=== PATIENT | female | born 1945 | race Caucasian/White ===

== ENCOUNTER 2022-05-23 02:50 | Emergency (ER) | payer MEDICARE ==
[~2022-05-23] VITALS: Ht 157.5 cm; Wt 52.2 kg
[2022-05-23 02:52] VITALS: BP 159/75
[2022-05-23 03:28] LABS: APPEARANCE,URINE TURBID (CLEAR); BILIRUBIN,URINE NEGATIVE (NEGATIVE); COLOR,URINE LIGHT-YELLOW (YELLOW); GLUCOSE, URINE (UA) NEGATIVE (NEGATIVE); KETONES,URINE NEGATIVE (NEGATIVE); LEUKOCYTE ESTERASE ,URINE NEGATIVE Leu/uL (NEGATIVE); NITRATE,URINE NEGATIVE (NEGATIVE); PROTEIN,URINE 10 mg/dL (NEGATIVE); UROBILINOGEN,URINE 0.2 mg/dL (0.2-1.0)
[2022-05-23 03:35] LABS: BACTERIA,URINE RARE /HPF (None Seen); MUCUS,URINE RARE LPF (None Seen); SQUAMOUS EPITHELIAL CELL,UR RARE /HPF (0-2)
[2022-05-23 03:48] LABS: BASOPHILS % (AUTO) 0.2 % (0.0-5.0); EOSINOPHILS % (AUTO) 0.3 % (0.0-8.0); HEMATOCRIT 36.2 % (36-48); MEAN CORPUSCULAR HEMOGLOBIN 31.8 pg (27.0-33.0); MEAN CORPUSCULAR HGB CONC 34.5 g/dL (32.0-36.0); MEAN CORPUSCULAR VOLUME 92.1 fL (79-99); PLATELET COUNT (AUTO) 217 K/uL (130-400); RED BLOOD CELL COUNT(AUTO) 3.93 MIL/uL (4.00-5.50); RED CELL DISTRIBUTION WIDTH 12.5 % (11.0-15.5); WHITE BLOOD COUNT (AUTO) 12.1 K/uL (4.8-10.8)
[2022-05-23 03:55] LABS: CREATININE 0.9 mg/dL (0.5-1.5); POTASSIUM 3.3 mmol/L (3.5-5.1)
[2022-05-23 04:00] LABS: TOTAL PROTEIN, SERUM 6.9 g/dL (6.0-8.3)
[2022-05-23] MEDS ORDERED: 0.9% NACL 500ML IV.SOLN 500 ML IV ONE (04:00)
[2022-05-23] MEDS ORDERED: KETOROLAC 15MG/ML VIAL (15MG/ML) IV ONE (04:00)
[2022-05-23] MEDS ORDERED: ONDANSETRON 4MG INJ IVP ONE (04:00)
[2022-05-23] MEDS ORDERED: DICL50TA9 PO (05:09)
[2022-05-23] MEDS ORDERED: ONDA4TAB10 PO (05:09)
[2022-05-23] MEDS ORDERED: TAMS-1 PO (17:32)
[2022-05-23] MEDS ORDERED: CEPH500B PO (17:32)
== END 2022-05-23 05:18 | disposition home or self-care (01) ==
LOC: EDH 02:50
DX: N20.1 Calculus of ureter (principal); R11.0 Nausea; E78.00 Pure hypercholesterolemia, unspecified; Z79.1 Long term (current) use of non-steroidal anti-inflammatories (NSAID); Z88.1 Allergy status to other antibiotic agents; Z88.2 Allergy status to sulfonamides; Z79.899 Other long term (current) drug therapy
CPT/HCPCS: 99285; 74176; 96374; 96375; 80053; 85025; 81001; 36415; J7040; J2405; J1885; 96361

== ENCOUNTER 2022-05-23 14:26 | Emergency (ER) | payer MEDICARE ==
[~2022-05-23] VITALS: Ht 157.5 cm; Wt 52.2 kg
[~2022-05-23 14:26] MED LIST: DICL50TA9 PO; ONDA4TAB10 PO
[2022-05-23] MEDS ORDERED: LACTATED RINGERS 1000ML 1,000 ML IV ONE (15:00)
[2022-05-23 15:19] LABS: BASOPHILS % (AUTO) 0.3 % (0.0-5.0); EOSINOPHILS % (AUTO) 0.1 % (0.0-8.0); HEMATOCRIT 35.2 % (36-48); LYMPHOCYTES % (AUTO) 5.3 % (21.0-51.0); MEAN CORPUSCULAR HGB CONC 34.9 g/dL (32.0-36.0); MEAN CORPUSCULAR VOLUME 91.7 fL (79-99); MONOCYTES % (AUTO) 4.6 % (3.0-13.0); NEUTROPHILS % (AUTO) 89.2 % (40.0-77.0); PLATELET COUNT (AUTO) 225 K/uL (130-400); RED BLOOD CELL COUNT(AUTO) 3.84 MIL/uL (4.00-5.50); RED CELL DISTRIBUTION WIDTH 12.6 % (11.0-15.5); WHITE BLOOD COUNT (AUTO) 14.4 K/uL (4.8-10.8)
[2022-05-23 15:29] LABS: CREATININE 0.8 mg/dL (0.5-1.5)
[2022-05-23 15:34] LABS: ALBUMIN 3.8 g/dL (3.5-5.0); TOTAL PROTEIN, SERUM 6.7 g/dL (6.0-8.3)
[2022-05-23] MEDS ORDERED: POTASSIUM BICARB/CIT AC 25 MEQ TABLET.EFF PO STA (15:50)
[2022-05-23] MEDS ORDERED: ONDANSETRON 4MG INJ IVP STA (15:53)
[2022-05-23 16:21] LABS: APPEARANCE,URINE CLOUDY (CLEAR); BILIRUBIN,URINE NEGATIVE (NEGATIVE); COLOR,URINE LIGHT-YELLOW (YELLOW); GLUCOSE, URINE (UA) NEGATIVE (NEGATIVE); KETONES,URINE 10 mg/dL (NEGATIVE); LEUKOCYTE ESTERASE ,URINE NEGATIVE Leu/uL (NEGATIVE); NITRATE,URINE NEGATIVE (NEGATIVE); OCCULT BLOOD,URINE MODERATE (NEGATIVE); PROTEIN,URINE NEGATIVE (NEGATIVE); UROBILINOGEN,URINE 0.2 mg/dL (0.2-1.0)
[2022-05-23 16:27] LABS: BACTERIA,URINE FEW /HPF (None Seen); MUCUS,URINE RARE LPF (None Seen); RBC,URINE 51-100 /HPF (0-1); SQUAMOUS EPITHELIAL CELL,UR RARE /HPF (0-2)
[2022-05-23] MEDS ORDERED: KETOROLAC 30MG VIAL (30MG/ML) IVP ONE (17:30)
[2022-05-23] MEDS ORDERED: TAMS-1 PO (17:32)
[2022-05-23] MEDS ORDERED: CEPH500B PO (17:32)
[2022-05-23 17:59] VITALS: BP 139/55
== END 2022-05-23 18:07 | disposition home or self-care (01) ==
LOC: EDH 14:26
DX: N20.0 Calculus of kidney (principal); E87.6 Hypokalemia; R11.2 Nausea with vomiting, unspecified; E78.00 Pure hypercholesterolemia, unspecified; J45.909 Unspecified asthma, uncomplicated; Z88.2 Allergy status to sulfonamides; Z88.8 Allergy status to other drugs, medicaments and biological substances; Z87.442 Personal history of urinary calculi; Z90.710 Acquired absence of both cervix and uterus; Z90.89 Acquired absence of other organs
CPT/HCPCS: 99284; 74176; 96374; 96361; 96375; 83735; 85025 ×2; 87088; 81001 ×2; 36415 ×2; 80053 ×2; J7040; J7120; J2405 ×2; J1885 ×2

== ENCOUNTER 2022-06-02 12:07 | Emergency (ER) | payer MEDICARE ==
[~2022-06-02] VITALS: Ht 157.5 cm; Wt 51.3 kg
[~2022-06-02 12:07] MED LIST changes: +CEPH500B PO; +TAMS-1 PO
[2022-06-02 13:45] LABS: BASOPHILS % (AUTO) 0.3 % (0.0-5.0); EOSINOPHILS % (AUTO) 1.5 % (0.0-8.0); HEMATOCRIT 38.5 % (36-48); LYMPHOCYTES % (AUTO) 9.8 % (21.0-51.0); MEAN CORPUSCULAR HEMOGLOBIN 31.3 pg (27.0-33.0); MEAN CORPUSCULAR VOLUME 91.9 fL (79-99); MONOCYTES % (AUTO) 6.6 % (3.0-13.0); NEUTROPHILS % (AUTO) 81.5 % (40.0-77.0); PLATELET COUNT (AUTO) 327 K/uL (130-400); RED BLOOD CELL COUNT(AUTO) 4.19 MIL/uL (4.00-5.50); RED CELL DISTRIBUTION WIDTH 12.3 % (11.0-15.5); WHITE BLOOD COUNT (AUTO) 11.4 K/uL (4.8-10.8)
[2022-06-02] MEDS ORDERED: KETOROLAC 30MG VIAL (30MG/ML) IVP ONE (14:00)
[2022-06-02] MEDS ORDERED: TAMSULOSIN HCL 0.4 MG CAP.ER.24H PO SCH (14:00)
[2022-06-02 14:19] LABS: APPEARANCE,URINE CLOUDY (CLEAR); BILIRUBIN,URINE NEGATIVE (NEGATIVE); COLOR,URINE LIGHT-YELLOW (YELLOW); GLUCOSE, URINE (UA) NEGATIVE (NEGATIVE); KETONES,URINE NEGATIVE (NEGATIVE); LEUKOCYTE ESTERASE ,URINE NEGATIVE Leu/uL (NEGATIVE); NITRATE,URINE NEGATIVE (NEGATIVE); OCCULT BLOOD,URINE SMALL (NEGATIVE); PH,URINE 6.5 (5.0-8.0); PROTEIN,URINE 10 mg/dL (NEGATIVE); UROBILINOGEN,URINE 0.2 mg/dL (0.2-1.0)
[2022-06-02 14:20] LABS: CREATININE 0.8 mg/dL (0.5-1.5); POTASSIUM 4.3 mmol/L (3.5-5.1)
[2022-06-02 14:25] LABS: ALBUMIN 3.9 g/dL (3.5-5.0); TOTAL PROTEIN, SERUM 7.2 g/dL (6.0-8.3)
[2022-06-02 14:34] LABS: BACTERIA,URINE RARE /HPF (None Seen); MUCUS,URINE RARE LPF (None Seen); SQUAMOUS EPITHELIAL CELL,UR MOD /HPF (0-2)
[2022-06-02] MEDS ORDERED: NITR100C4 PO (15:25)
[2022-06-02] MEDS ORDERED: TAMS-1 PO (15:25)
[2022-06-02 15:43] VITALS: BP 121/55
== END 2022-06-02 15:55 | disposition home or self-care (01) ==
LOC: EDH 12:07
DX: N20.2 Calculus of kidney with calculus of ureter (principal); J45.909 Unspecified asthma, uncomplicated; E78.00 Pure hypercholesterolemia, unspecified; Z88.1 Allergy status to other antibiotic agents; Z88.2 Allergy status to sulfonamides; Z90.710 Acquired absence of both cervix and uterus; Z90.89 Acquired absence of other organs; Z79.899 Other long term (current) drug therapy; Z98.890 Other specified postprocedural states; Z87.442 Personal history of urinary calculi
CPT/HCPCS: 99285; 80053; 85025; 81001; 36415; 74176; 96374; J1885

== ENCOUNTER 2022-12-08 06:23 | Day surgery (SDC) | payer MEDICARE ==
[2022-12-05 10:01] VITALS: BP_SYST 150; BP_SYST 194; BP_DIAS 64; BP_DIAS 75; PULSE 59; RESP 18
[2022-12-05 10:02] LABS: BASOPHILS # (AUTO) 0.04 K/uL (0.00-0.20); BASOPHILS % (AUTO) 0.7 % (0.0-5.0); EOSINOPHILS # (AUTO) 0.33 K/uL (0.00-0.70); EOSINOPHILS % (AUTO) 5.4 % (0.0-8.0); HEMATOCRIT 41.3 % (36-48); IMMATURE GRANULOCYTE ABSOLUTE 0.01 K/uL (0-1); LYMPHOCYTES # (AUTO) 1.9 K/uL (1.0-4.8); LYMPHOCYTES % (AUTO) 30.3 % (21.0-51.0); MEAN CORPUSCULAR HGB CONC 33.7 g/dL (32.0-36.0); MEAN CORPUSCULAR VOLUME 92.2 fL (79-99); MONOCYTES # (AUTO) 0.4 K/uL (0.1-1.0); MONOCYTES % (AUTO) 6.2 % (3.0-13.0); NEUTROPHILS # (AUTO) 3.5 K/uL (1.8-7.7); NEUTROPHILS % (AUTO) 57.2 % (40.0-77.0); PLATELET COUNT (AUTO) 257 K/uL (130-400); RED BLOOD CELL COUNT(AUTO) 4.48 MIL/uL (4.00-5.50); WHITE BLOOD COUNT (AUTO) 6.1 K/uL (4.8-10.8)
[2022-12-05 10:07] LABS: CREATININE 0.7 mg/dL (0.5-1.5); POTASSIUM 4.6 mmol/L (3.5-5.1)
[2022-12-05 10:20] LABS: APPEARANCE,URINE CLEAR (CLEAR); BILIRUBIN,URINE NEGATIVE (NEGATIVE); COLOR,URINE LIGHT-YELLOW (YELLOW); GLUCOSE, URINE (UA) NEGATIVE (NEGATIVE); KETONES,URINE NEGATIVE (NEGATIVE); LEUKOCYTE ESTERASE ,URINE NEGATIVE Leu/uL (NEGATIVE); NITRATE,URINE NEGATIVE (NEGATIVE); OCCULT BLOOD,URINE NEGATIVE (NEGATIVE); PROTEIN,URINE NEGATIVE (NEGATIVE); UROBILINOGEN,URINE 0.2 mg/dL (0.2-1.0)
[2022-12-05 10:21] LABS: ADD UA MICROSCOPIC NO
[2022-12-05 10:26] LABS: INR 0.94 (0.85-1.15); PROTHROMBIN TIME 10.9 SEC (9.6-11.6)
[2022-12-05 10:28] LABS: PARTIAL THROMBOPLASTIN TIME 32.2 SEC (26.3-35.5)
[2022-12-08] VITALS (18 sets, daily range): BP systolic 110–164; BP diastolic 49–72; PULSE 62–71; RESP 12–18
[~2022-12-08] VITALS: Ht 157.5 cm; Wt 50.5 kg
[~2022-12-08 06:23] MED LIST changes: +BUDE10.22 IH; -CEPH500B PO; +CETI10CA5 PO; -DICL50TA9 PO; +ESOM20CA60 PO; +FLUT16H NASAL; -ONDA4TAB10 PO; +PRAV40TA3 PO; +PREM625 PO; -TAMS-1 PO; +TOPI25TA48 PO; +TRAZ-185 PO
[2022-12-08] MEDS ORDERED: CEFAZOLIN SODIUM 2 GM VIAL ONE (06:40)
[2022-12-08] MEDS ORDERED: LACTATED RINGERS 1000ML 1,000 ML IV ONE (06:40)
[2022-12-08] MEDS ORDERED: MIDAZOLAM HCL 1 MG/ML 2ML VIAL ONE (10:44)
[2022-12-08] MEDS ORDERED: SUCCINYLCHOLINE 200MG/10ML SYR ONE (10:44)
[2022-12-08] MEDS ORDERED: DEXAMETHASONE SOD PHOSPHATE 10MG/ML 1ML VIAL ONE (10:44)
[2022-12-08] MEDS ORDERED: PROPOFOL 10 MG/ML 20ML VIAL IV ONE (10:44)
[2022-12-08] MEDS ORDERED: GLYCOPYRROLATE 1 MG/5 ML SYRINGE ONE (10:44)
[2022-12-08] MEDS ORDERED: LIDOCAINE PF 100MG/5ML (2%) SYRINGE 5ML ONE (10:44)
[2022-12-08] MEDS ORDERED: ROCURONIUM 10MG/1ML SYR 10 MG/ML ML ONE (10:45)
[2022-12-08] MEDS ORDERED: ONDANSETRON 4MG INJ ONE ×2 (10:45→11:55)
[2022-12-08] MEDS ORDERED: NEOSTIGMINE 5MG/5ML SYR IV ONE (10:45)
[2022-12-08] MEDS ORDERED: FENTANYL CITRATE PF 50 MCG/1 ML 2ML VIAL ONE (10:45)
[2022-12-08] MEDS ORDERED: CEFAZOLIN SODIUM 2 GM VIAL IVPB ONE (10:55)
[2022-12-08] MEDS ORDERED: EPHEDRINE SULFATE 50 MG/ML AMPULE ONE (11:06)
[2022-12-08] MEDS ORDERED: BUPIVACAINE/PF 0.5% 30ML VIAL ONE (11:16)
[2022-12-08] MEDS ORDERED: MEPERIDINE-PF 25 MG/ML SYG ONE ×2 (11:54→12:10)
== END 2022-12-08 13:55 | disposition home or self-care (01) ==
LOC: DAH 06:23
PROVIDERS: ATTEND Student in an Organized Health Care Education/Training Program
DX: D05.12 Intraductal carcinoma in situ of left breast (principal); Z20.822 Contact with and (suspected) exposure to COVID-19; N60.92 Unspecified benign mammary dysplasia of left breast; D48.62 Neoplasm of uncertain behavior of left breast; I10 Essential (primary) hypertension; J44.9 Chronic obstructive pulmonary disease, unspecified; G43.909 Migraine, unspecified, not intractable, without status migrainosus; E78.5 Hyperlipidemia, unspecified; G47.00 Insomnia, unspecified; Z98.890 Other specified postprocedural states; Z90.710 Acquired absence of both cervix and uterus; Z79.899 Other long term (current) drug therapy; Z79.01 Long term (current) use of anticoagulants; Z80.9 Family history of malignant neoplasm, unspecified
CPT/HCPCS: 87426; 80048; 85025; 85610; 85730; 81003; 36415; 19301; 77065; 76098; 19281; 19285; A6260; A4663; J7120; J3010; J0330; J3490 ×3; J1100; J2710; J2001; J2250; J2704; J2405 ×2; J2175 ×2; J0690 ×2; C1819 ×2; A4930; A4215; A4223; A4222; A4221; G0168

== ENCOUNTER 2023-01-08 07:29 | Observation (INO) | payer MEDICARE ==
[2023-01-04 11:22] LABS: BASOPHILS # (AUTO) 0.05 K/uL (0.00-0.20); BASOPHILS % (AUTO) 0.8 % (0.0-5.0); EOSINOPHILS # (AUTO) 0.27 K/uL (0.00-0.70); EOSINOPHILS % (AUTO) 4.5 % (0.0-8.0); HEMATOCRIT 38.9 % (36-48); IMMATURE GRANULOCYTE ABSOLUTE 0.01 K/uL (0-1); LYMPHOCYTES # (AUTO) 1.7 K/uL (1.0-4.8); LYMPHOCYTES % (AUTO) 27.8 % (21.0-51.0); MEAN CORPUSCULAR HEMOGLOBIN 31.3 pg (27.0-33.0); MEAN CORPUSCULAR HGB CONC 33.7 g/dL (32.0-36.0); MEAN CORPUSCULAR VOLUME 92.8 fL (79-99); MONOCYTES # (AUTO) 0.5 K/uL (0.1-1.0); MONOCYTES % (AUTO) 7.8 % (3.0-13.0); NEUTROPHILS # (AUTO) 3.6 K/uL (1.8-7.7); NEUTROPHILS % (AUTO) 58.9 % (40.0-77.0); PLATELET COUNT (AUTO) 243 K/uL (130-400); RED BLOOD CELL COUNT(AUTO) 4.19 MIL/uL (4.00-5.50); RED CELL DISTRIBUTION WIDTH 12.1 % (11.0-15.5)
[2023-01-04 11:28] LABS: APPEARANCE,URINE CLEAR (CLEAR); BILIRUBIN,URINE NEGATIVE (NEGATIVE); COLOR,URINE COLORLESS (YELLOW); GLUCOSE, URINE (UA) NEGATIVE (NEGATIVE); KETONES,URINE NEGATIVE (NEGATIVE); LEUKOCYTE ESTERASE ,URINE NEGATIVE Leu/uL (NEGATIVE); NITRATE,URINE NEGATIVE (NEGATIVE); OCCULT BLOOD,URINE NEGATIVE (NEGATIVE); PH,URINE 6.5 (5.0-8.0); PROTEIN,URINE NEGATIVE (NEGATIVE); UROBILINOGEN,URINE 0.2 mg/dL (0.2-1.0)
[2023-01-04 11:33] LABS: INR < 0.93 (0.85-1.15); PROTHROMBIN TIME 10.7 SEC (9.6-11.6)
[2023-01-04 11:34] LABS: PARTIAL THROMBOPLASTIN TIME 30.8 SEC (26.3-35.5)
[2023-01-04 11:35] LABS: CREATININE 0.7 mg/dL (0.5-1.5); POTASSIUM 4.2 mmol/L (3.5-5.1)
[2023-01-04 11:37] LABS: ADD UA MICROSCOPIC NO
[2023-01-05 10:46] VITALS: BP 160/58; PULSE 60; RESP 16
[2023-01-08] VITALS (30 sets, daily range): BP systolic 104–158; BP diastolic 38–75; PULSE 63–83; RESP 11–20
[~2023-01-08] VITALS: Ht 157.5 cm; Wt 50.3 kg
[~2023-01-08 07:29] MED LIST changes: -PREM625 PO
[2023-01-08] MEDS ORDERED: LACTATED RINGERS 1000ML 1,000 ML IV ONE (08:31)
[2023-01-08] MEDS ORDERED: CEFAZOLIN SODIUM 2 GM VIAL ONE (08:31)
[2023-01-08] MEDS ORDERED: BUPIVACAINE/PF 0.25% 30ML VIAL IJ ONE (12:36)
[2023-01-08] MEDS ORDERED: DEXAMETHASONE SOD PHOSPHATE 10MG/ML 1ML VIAL ONE (13:10)
[2023-01-08] MEDS ORDERED: PROPOFOL 10 MG/ML 20ML VIAL IV ONE (13:10)
[2023-01-08] MEDS ORDERED: LIDOCAINE PF 100MG/5ML (2%) SYRINGE 5ML ONE (13:10)
[2023-01-08] MEDS ORDERED: SUCCINYLCHOLINE CHLORIDE 20 MG/ML 10 ML VIAL ONE (13:10)
[2023-01-08] MEDS ORDERED: ROCURONIUM 10MG/1ML SYR 10 MG/ML ML ONE (13:11)
[2023-01-08] MEDS ORDERED: ONDANSETRON 4MG INJ ONE (13:11)
[2023-01-08] MEDS ORDERED: FENTANYL CITRATE PF 50 MCG/1 ML 2ML VIAL ONE ×3 (13:11→16:21)
[2023-01-08] MEDS ORDERED: MIDAZOLAM HCL 1 MG/ML 2ML VIAL ONE (13:11)
[2023-01-08] MEDS ORDERED: GLYCOPYRROLATE 1 MG/5 ML SYRINGE ONE (13:36)
[2023-01-08] MEDS ORDERED: EPHEDRINE SULFATE 50 MG/ML AMPULE ONE (13:45)
[2023-01-08] MEDS ORDERED: NEOSTIGMINE 5MG/5ML SYR IV ONE (15:05)
[2023-01-08] MEDS ORDERED: MORPHINE 2 MG SYG ONE (16:05)
[2023-01-08] MEDS ORDERED: DiphenhydrAMINE HCL 50 MG/ML VIAL ONE (17:01)
[2023-01-08] MEDS ORDERED: IBUPROFEN 800 MG TAB PO PRN (20:30)
[2023-01-08] MEDS ORDERED: MORPHINE 4 MG SYG IVP PRN (20:30)
[2023-01-08] MEDS: TRAMADOL HCL 50 MG TABLET PO SCH (20:59)
[2023-01-09] VITALS (11 sets, daily range): BP systolic 120–168; BP diastolic 57–89; PULSE 61–77; RESP 16–18; O2SAT 98–99
[2023-01-09] MEDS: TRAMADOL HCL 50 MG TABLET PO SCH ×4 (01:44→19:34)
[2023-01-09 05:05] LABS: MEAN CORPUSCULAR HEMOGLOBIN 31.2 pg (27.0-33.0); MEAN CORPUSCULAR HGB CONC 33.5 g/dL (32.0-36.0); MEAN CORPUSCULAR VOLUME 93.2 fL (79-99); RED BLOOD CELL COUNT(AUTO) 3.65 MIL/uL (4.00-5.50); RED CELL DISTRIBUTION WIDTH 11.8 % (11.0-15.5)
[2023-01-09 05:22] LABS: CREATININE 0.6 mg/dL (0.5-1.5); POTASSIUM 3.8 mmol/L (3.5-5.1)
[2023-01-09] MEDS ORDERED: BUDESONIDE 0.5 MG/2 ML INH IH ONE (06:22)
[2023-01-09] MEDS: TOPIRAMATE 25 MG TABLET PO SCH ×2 (08:44→19:33)
[2023-01-09] MEDS: LORATADINE 10 MG TABLET PO SCH (08:44)
[2023-01-09] MEDS: FLUTICASONE PROPIONATE 50MCG/SPRAY 16 GM BOTTLE EN SCH ×2 (08:46→19:38)
[2023-01-09] MEDS: PANTOPRAZOLE 40 MG TAB DR PO SCH (08:46)
[2023-01-09] MEDS: BUDESONIDE 0.5 MG/2 ML INH IH SCH (09:00)
[2023-01-09] MEDS ORDERED: DiphenhydrAMINE HCL 50 MG/ML VIAL IV PRN (16:20)
[2023-01-09] MEDS ORDERED: ATORVASTATIN 10 MG TABLET PO SCH (21:00)
[2023-01-09] MEDS ORDERED: TRAZODONE HCL 50 MG TAB PO SCH (21:00)
[2023-01-10] MEDS: TRAMADOL HCL 50 MG TABLET PO SCH ×3 (03:06→14:33)
[2023-01-10 03:40] VITALS: BP 131/72; PULSE 65; RESP 16
[2023-01-10 06:15] VITALS: PULSE 62; RESP 18
[2023-01-10] MEDS: BUDESONIDE 0.5 MG/2 ML INH IH SCH (06:15)
[2023-01-10 06:17] VITALS: PULSE 62; RESP 18; O2SAT 98
[2023-01-10 08:00] VITALS: O2SAT 97
[2023-01-10 08:10] VITALS: BP 139/81; PULSE 64; RESP 16
[2023-01-10] MEDS: FLUTICASONE PROPIONATE 50MCG/SPRAY 16 GM BOTTLE EN SCH (08:37)
[2023-01-10] MEDS: PANTOPRAZOLE 40 MG TAB DR PO SCH (08:37)
[2023-01-10] MEDS: LORATADINE 10 MG TABLET PO SCH (08:37)
[2023-01-10] MEDS: TOPIRAMATE 25 MG TABLET PO SCH (08:37)
[2023-01-10 12:02] VITALS: BP 134/66; PULSE 53; RESP 18
[2023-01-10] MEDS ORDERED: FLUTICASONE PROPIONATE 50MCG/SPRAY 16 GM BOTTLE EN SCH (21:00)
[2023-01-11] MEDS ORDERED: BUDESONIDE 0.5 MG/2 ML INH IH SCH (09:00)
== END 2023-01-10 17:00 | disposition home or self-care (01) ==
LOC: DAH 07:29 → DAHIP 07:30 → 4DH 19:00
PROVIDERS: ADMIT Student in an Organized Health Care Education/Training Program; ATTEND Student in an Organized Health Care Education/Training Program
DX: D05.12 Intraductal carcinoma in situ of left breast (principal); G43.909 Migraine, unspecified, not intractable, without status migrainosus; E78.5 Hyperlipidemia, unspecified; G47.00 Insomnia, unspecified; Z79.899 Other long term (current) drug therapy; Z98.890 Other specified postprocedural states; Z90.710 Acquired absence of both cervix and uterus
CPT/HCPCS: 80048 ×2; 85025; 85610; 85730; 81003; 36415 ×2; 19303; 88309; 93005; 94664; 96374; 85027; 94640 ×2; A6260; G0378 ×52; G0379; J7120 ×2; J1200 ×3; J3010 ×3; J3490 ×3; J1100; J2710; J0330; J2270; J2001; J2250; J2704; J2405; J0690; A4649; A4930; A4215; A4223; A4222; A4221; A4663

== ENCOUNTER → 2024-04-18 | Outpatient (CLI) | payer OTHER ==
--- NOTE | 2024-04-18 14:53 | HMCIMG ---
CT HEART SAVER PROMOTIONAL HISTORY: Calcium scoring COMPARISON: None TECHNIQUE: Computed tomography of the heart was performed with ECG gating and suspended respiration. Postprocessing was performed on a computer workstation to obtain diastolic phase images, determine calcium score and provide a quantitative assessment of extent of disease. This CT included only the heart. HeartSaver score is 10.60. Please see cardiac calcium score report. The available CT chest images show no acute finding. CT was performed with one or more following dose reduction techniques: automated exposure control, adjustment of the mA and kv according to patient's size, or use of a iterative reconstruction technique.
== END | disposition home or self-care (01) ==
LOC: RAH 13:52
PROVIDERS: ATTEND Family Medicine
DX: Z13.6 Encounter for screening for cardiovascular disorders (principal)
CPT/HCPCS: 75571

== ENCOUNTER 2025-04-11 09:39 | Emergency (ER) | payer MEDICARE ==
[~2025-04-11] VITALS: Ht 157.5 cm; Wt 52.2 kg
[~2025-04-11 09:39] MED LIST changes: +ALBU18HF7 IH; +AMLO5TAB4 PO; +ASPI-1443 PO; -BUDE10.22 IH; +CEFD300C3 PO; +CETI-89 PO; -CETI10CA5 PO; +CIPOTIC OTIC; -ESOM20CA60 PO; -FLUT16H NASAL; +FLUT16H NS; +FLUT1AER IH; +LETR2.5T7 PO; +LOSA25TA41 PO; -PRAV40TA3 PO; +PRAV40TA62 PO; +RIZA10TA98 PO; +TOPI25CA6 PO; -TOPI25TA48 PO; -TRAZ-185 PO; +TRAZ-253 PO
[2025-04-11 10:08] VITALS: BP 165/61; PULSE 59; RESP 19; TEMP 98.6; O2SAT 97
--- NOTE | 2025-04-11 10:11 | ERN ---
General Chief Complaint: Hand Problem/Injury Stated Complaint: RIGHT HAND INJURY Time Seen by : 09:41 Source: patient History of Present Illness Initial Comments PATIENT IS A FEMALE COMING IN COMPLAINING OF RIGHT HAND PAIN. SHE STATES THAT SHE HAD HER RIGHT HAND TANGLED UP AND DOG'S LEASH. THE THEN HE HAS BEEN HAVING PAIN IN HER RIGHT HAND. Allergies: Coded Allergies: sulfamethoxazole (Unverified Allergy, Unknown, 05/23/22) Uncoded Allergies: SEAFOOD (Allergy, Intermediate, 12/06/22) Home Meds Active Scripts Aspirin (Aspirin EC) 81 Mg Tablet.dr, 1 TAB PO DAILY for 30 Days, #30 TAB 1 Refill Prov:SHAI RUSSELL MD 02/12/25 Cefdinir (Cefdinir) 300 Mg Capsule, 1 CAP PO BID for 5 Days, #10 CAP 0 Refills Prov:SHAI RUSSELL MD 02/11/25 Losartan Potassium (Losartan Potassium) 25 Mg Tablet, 1 TAB PO DAILY for 30 Days, #30 TAB 1 Refill Prov:SHAI RUSSELL MD 02/11/25 Ciprofloxacin HCl/Hc (Cipro Hc Otic Susp) 0.2 %-1 % [place], 0 DROP OTIC BID for 5 Days, #1 DROP 1 Refill 2 drops right ear b.i.d. Prov:SHAI RUSSELL MD 02/11/25 Amlodipine Besylate (Norvasc 5Mg Tab) 5 Mg Tablet, 5 MG PO DAILY for 30 Days, #30 TAB 1 Refill Prov:SHAI RUSSELL MD 02/11/25 Reported Medications Albuterol Sulfate (Ventolin Hfa) 90 Mcg Hfa.aer.ad, 2 PUFF IH Q4HPRN PRN for wheezing for 30 Days, #18 GM 0 Refills 02/09/25 Fluticasone Propionate (Flonase Nasal [place]) 50 Mcg/Actuation [place], 2 SPRAY NS DAILY, #16 GM 0 Refills 02/09/25 Fluticasone/Vilanterol (Breo Ellipta 100-25 Mcg INH) 100 Mcg-25 Mcg/Dose Aer.pow.ba, 1 PUFF IH DAILY for 30 Days, #1 EACH 0 Refills 02/09/25 Rizatriptan Benzoate (Rizatriptan) 10 Mg Tab.rapdis, 1 TAB PO AD, #18 TAB 0 Refills 02/09/25 Letrozole (Letrozole) 2.5 Mg Tablet, 1 TAB PO DAILY for 30 Days, #30 TAB 0 Refills 02/09/25 Cetirizine HCl (Zyrtec) 10 Mg Tablet, 1 TAB PO DAILY for allergy symptoms for 30 Days, #30 TAB 0 Refills 02/09/25 Topiramate (Topiramate) 25 Mg Cap.sprink, 1 CAP PO BID for 30 Days, #60 CAP 0 Refills 02/09/25 Trazodone HCl (Desyrel) 50 Mg Tab, 1 TAB PO HS for 30 Days, #30 TAB 0 Refills 02/09/25 Pravastatin Sodium (Pravastatin Sodium) 40 Mg Tablet, 1 TAB PO DAILY for 30 Days, #30 TAB 0 Refills 02/09/25 Past Medical History Past Medical History: Asthma, High Cholesterol, Kidney Stone, Other Medical History Other: LEFT BREAST CANCER, REMISSION Past Surgical History: Hysterectomy, Tonsillectomy, Other Surgical History Other: COLON RESECTION, LEFT BREAST MASECTOMY Social History Social History: Negative, Other Female( History) History: Not Applicable ROS Dictation CONSTITUTIONAL: NO CHILLS, NO FEVER, NO WEAKNESS, NO DIAPHORESIS, NO MALAISE. HEAD/FACE: NO SIGNS OF TRAUMA. EENT: NO EYE PAIN, NO BLURRED VISION, NO TEARING, NO DOUBLE VISION, NO EAR PAIN, NO EAR DISCHARGE, NO NOSE PAIN, NO NASAL CONGESTION, NO THROAT PAIN, NO THROAT SWELLING, NO MOUTH PAIN. RESPIRATORY: NO COUGH, NO ORTHOPNEA, NO SOB, NO STRIDOR, NO WHEEZING. CARDIOVASCULAR: NO CHEST PAIN, NO EDEMA, NO PALPITATIONS, NO SYNCOPE. GASTROINTESTINAL/ABDOMINAL: NO ABDOMINAL PAIN, NO CONSTIPATION, NO DIARRHEA, NO NAUSEA, NO VOMITING. GENITOURINARY: NO ABNORMAL DISCHARGE, NO DYSURIA, NO FREQUENT URINATION, NO HEMATURIA. NO COMPLAINTS OF PAIN IN THE GENITALS. MUSCULOSKELETAL: NO BACK PAIN, NO GOUT, JOINT PAIN, JOINT SWELLING, MUSCLE PAIN, NO MUSCLE STIFFNESS, NO NECK PAIN. INTEGUMENTARY: NO CHANGE IN COLOR, NO CHANGE IN HAIR/NAILS, NO DRYNESS, NO LESION, NO LUMPS, NO RASH. NEUROLOGICAL/PSYCH: NO ANXIETY, NOT DEPRESSED, NO EMOTIONAL PROBLEM, NO HEADACHE, NO NUMBNESS, NO PRE-EXISTING DEFICIT, NO HISTORY OF SEIZURES, NO TREMORS, NO WEAKNESS. HEMATOLOGIC/LYMPHATIC: NOT ANEMIC, NO HISTORY OF BLOOD CLOTS, NO APPARENT BLEEDING, NO BRUISING, GLANDS NOT SWOLLEN. ALL SYSTEMS NEGATIVE, EXCEPT NOTED. Physical Exam Physical Exam Dictation VITAL SIGNS: REVIEWED. GENERAL APPEARANCE: ALERT, ORIENTED X3, NO ACUTE DISTRESS, OBESE. HEAD AND FACE: NON-TRAUMATIC. EYES: PERRL, PINK CONJUNCTIVAS, EYELID NO TRAUMA, ANTERIOR CHAMBER CLEAR. EARS: PINNAS INTACT AND NO SIGNS OF TRAUMA OR ERYTHEMA. EAR CANALS CLEAR AND NO DISCHARGE. TMS NO ERYTHEMA. NOSE: NO DISCHARGE, NO BLEEDING. OROPHARYNX: MOUTH NORMAL, TEETH NO CARIES, TONGUE PINK. PHARYNX CLEAR, NO ERYTHEMA. TONSILS NO EXUDATES, NO ABSCESSES NOTED. MUCOUS MEMBRANE MOIST. NECK: SUPPLE, NON-TENDER, NO THYROMEGALY, NO MASSES, NO JVD, NO BRUITS. BREAST: DEFERRED. CHEST: NO TENDERNESS, NO CREPITUS, NO PARADOXICAL MOVEMENT, NO RETRACTIONS. LUNGS: CLEAR, WELL-VENTILATED, SYMMETRIC, NO RALES, NO WHEEZING, NO RHONCHI, NO STRIDOR, GOOD BREATH SOUNDS BILATERALLY. HEART: REGULAR RATE, REGULAR RHYTHM, NO MURMUR, NO GALLOPS. VASCULAR: NO PERIPHERAL EDEMA. ABDOMEN: SOFT, POSITIVE BOWEL SOUNDS, NONDISTENDED, NO GUARDING, NONTENDER, NO REBOUND, NO MASSES NO HEPATOMEGALY, NO SPLENOMEGALY, NO KRAUS'S SIGN, NO HERNIAS. RECTAL: DEFERRED. GENITAL: DEFERRED. NEUROLOGICAL: NORMAL SPEECH, GROSS MOTOR FUNCTION INTACT, GROSS SENSORY FUNCTION INTACT. MUSCULOSKELETAL: NECK NONTENDER, FULL RANGE OF MOTION, BACK NONTENDER, FULL RANGE OF MOTION. EXTREMITIES: NONTENDER, FULL RANGE OF MOTION. RIGHT HAND SWELLING ECCHYMOSIS, SKIN: COLOR PINK, DRY, NO TURGOR, NO RASH, NO LACERATIONS, NO ABRASIONS, NO CONTUSIONS. LYMPHATICS: DEFERRED. Results Laboratory and Microbiology Labs Reviewed?: Yes EKG/XRAY/US/CT/MRI X-RAY Comment X-RAY RIGHT HAND- 4TH METACARPAL FRACTURE MDM MDM: DIFFERENTIAL DIAGNOSIS: METACARPAL FRACTURE, HAND CONTUSION, RATIONALE: TESTS CONSIDERED AND ORDERED SECONDARY TO SHARED DECISION MAKING INCLUDE: PREVIOUS OUTSIDE RECORDS REVIEWED: OLD ER VISITS. RISK OF COMPLICATION AND/OR MORBIDITY OR MORTALITY OF PATIENT MANAGEMENT: NONE MEDICATIONS-PER MEDICATION RECONCILIATION NEED FOR HOSPITALIZATION: PATIENT DOES NOT MEET CRITERIA FOR HOSPITALIZATION. NEED FOR EMERGENCY MAJOR/MINOR SURGERY: NO PATIENT IS A 79-YEAR-OLD FEMALE COMING IN COMPLAINING OF RIGHT HAND PAIN. X-RAY DISCLOSE A POSSIBLE 4TH METACARPAL DISTAL FRACTURE. HAND SPLINT WILL BE PLACED PATIENT WILL BE DISCHARGED IN STABLE CONDITION. I DID ADVISED HER APPROPRIATE FOLLOW UP WITH PCP AND/[facility]. ED Course Orders Procedure Category Date Status Time Hand 2+Vws Rt Limited RAD 04/11/25 Taken 09:41 Vital Signs Date Time Temp Pulse Resp B/P (MAP) Pulse Ox O2 Delivery O2 Flow Rate FiO2 04/11/25 09:40 98.1 65 18 161/61 97 Room Air DX & DISP Disposition: Discharge Departure Impression: Primary Impression: Fracture of fourth metacarpal bone of right hand Condition: Stable Additional Instructions: FOLLOW-UP WITH PRIMARY CARE PROVIDER IN 1 TO 2 DAYS. TAKE MEDICATIONS DIRECTED HERE IN THE EMERGENCY ROOM. OKAY TO CONTINUE HOME MEDICATIONS UNLESS OTHERWISE DISCUSSED DURING YOUR VISIT IN THE EMERGENCY ROOM TODAY. RETURN TO YOUR NEAREST EMERGENCY ROOM IF SYMPTOMS WORSEN OR IF THERE IS NO IMPROVEMENT. CALL 911 IF YOU NEED IMMEDIATE ASSISTANCE. TAKE TYLENOL [id number] EEDED AND IF NO CONTRAINDICATIONS ARE PRESENT. INCREASE ORAL HYDRATION. A WOUND CULTURE OR URINE CULTURE WAS ORDERED HERE IN THE EMERGENCY ROOM DEPARTMENT PLEASE FOLLOW-UP WITH PRIMARY CARE PROVIDER AND ADVISE THEM TO GET REPORTS FROM OUR FACILITY. IF YOU HAD ANY CHARLIE WRAP/SPLINTS THAT WERE APPLIED HERE, PLEASE DO NOT REMOVE THEM UNTIL YOU SEE YOUR PRIMARY CARE OR SPECIALTY. REFERRALS: Referrals: LISA MCKEON MD (PCP) GEN GE MD Time of Disposition: 10:10 VALARIE KHAN MD Apr 11, 2025 10:11
--- NOTE | 2025-04-11 10:29 | HMCIMG ---
EXAM: CR right Hand, 4 View. CLINICAL HISTORY: TRAUMA COMPARISON: None provided. FINDINGS: BONES: Acute fracture of the fourth metacarpal neck JOINTS: No evidence of dislocation. Reduced distal interphalangeal joint space with sclerosis and osteophytes around all fingers and the first carpometacarpal joint. SOFT TISSUES: The soft tissues appear within normal limits. No radiopaque foreign body is seen. IMPRESSION: Degenerative changes in the distal interphalangeal joints of all fingers and the first carpometacarpal joint. Acute fracture of the fourth metacarpal neck /John
--- NOTE | 2025-04-11 10:37 | NUR ---
DC PATIENT WAS DC'D BY DR KHAN I PROVIDED PATIENT WQITH WRIST SPLINT AND FINGER SPLINTS PER DR KHAN I EXPLAINED TO PATIENT TO FOLLOW UP WITH PCP, PROVIDED INFO BASED ON DIAGNOSIS, AND ANSWERED ANY FOLLOW UP QUESTIONS PATIENT AMBULATED OUT OF ED, NO COMPLICATIONS
== END 2025-04-11 10:40 | disposition home or self-care (01) ==
LOC: EDH 09:39
DX: S62.334A Displaced fracture of neck of fourth metacarpal bone, right hand, initial encounter for closed fracture (principal); J45.909 Unspecified asthma, uncomplicated; E78.00 Pure hypercholesterolemia, unspecified; Z88.2 Allergy status to sulfonamides; Z91.013 Allergy to seafood; Z79.82 Long term (current) use of aspirin; Z79.899 Other long term (current) drug therapy; Z79.51 Long term (current) use of inhaled steroids; Z79.811 Long term (current) use of aromatase inhibitors; Z85.3 Personal history of malignant neoplasm of breast; Z87.442 Personal history of urinary calculi; Z90.710 Acquired absence of both cervix and uterus; W23.0XXA Caught, crushed, jammed, or pinched between moving objects, initial encounter; Y93.89 Activity, other specified; Y92.89 Other specified places as the place of occurrence of the external cause; Y99.8 Other external cause status
CPT/HCPCS: 29125; 73120; 99283